=== PATIENT | female | born 1950 | race Caucasian/White ===

== ENCOUNTER 2023-09-07 09:39 | Outpatient (AMB) | payer MEDICARE, SELFPAY ==
--- NOTE | 2023-09-07 09:37 | AM.OFFWIN_ITS ---
Intake Vital Signs 09/07/23 09:46 Height 5 ft 2 in Weight 112 lb BMI 20.5 BP 120/60 Blood Pressure Location Lt brachial Position Sitting Pulse 82 Pulse Source Pulse Oximeter Temp 97.6 F Temp Source Temporal Artery Scan Pulse Oximetry (%) 96 Oxygen Delivery Method Room Air Intake Visit Reasons: EP cough lft ear pain Intake Note: pt is here today for cough lft ear pain started 2 weeks ago Patient Tobacco Use Status: Current everyday Tobacco user Allergies Sulfa (Sulfonamide Antibiotics) [SULFA (SULFONAMIDE ANTIBIOTICS)] Allergy (Mild, Verified 09/07/23 09:38) HIVES Penicillins [PENICILLINS] Allergy (Unknown, Verified 09/07/23 09:38) UNKNOWN Do you need a note to return to daycare/school/sports/work: No HPI HPI Comments History of Present Illness Details 73 y/o female patient who presents to [facility] in clinic with c/o URI symptoms for 2 weeks. Pt has been in/out of hospital, is admitted. PFSH Social History Patient Tobacco Use Status: Current everyday Tobacco user Review of Systems Const All systems reviewed & are unremarkable except as noted in HPI and below Physical Exam Vital Signs: Last Vital Signs Temp 97.6 F 09/07/23 09:46 Pulse 82 09/07/23 09:46 BP 120/60 09/07/23 09:46 Pulse Ox 96 09/07/23 09:46 Oxygen Delivery Method Room Air 09/07/23 09:46 BMI result Body Mass Index 20.5 Const General: no acute distress and ill appearing HEENT Head: Yes normocephalic and Yes atraumatic Ears: external ears normal and TM's normal bilaterally General nose exam: Abnormal mucous membranes and turbinates present boggy bilateral and erythematous bilateral Face and sinus: Yes sinuses nontender Mouth: moist mucous membranes Throat: Yes posterior oropharynx normal Resp Effort & Inspection: able to speak in complete sentences and Actively coughing Auscultation: rhonchi and wheezes Cardio Rate: regular rate Rhythm: regular rhythm Assessment & Plan Assessment & Plan (1) Upper respiratory infection: Code(s): J06.9 - Acute upper respiratory infection, unspecified Qualifiers: URI type: unspecified URI Qualified Code(s): J06.9 - Acute upper respiratory infection, unspecified Plan: - Rest and hydrate well - Acetaminophen for pain relief - OTC cold remedies. Orders: Orders SARS-CoV2/FLU/RSV Today J06.9 - Acute upper respiratory infection, unspecified Medications: New doxycycline hyclate 100 mg PO BID 10 days 20 caps 0RF acetaminophen 1,000 mg (2 x 500 mg) PO Q6H PRN 30 caps 0RF fever J06.9 - Acute upper respiratory infection, unspecified Coding Level of Care Code Est Pt Level 3 (61838) Diagnoses Upper respiratory tract infection, unspecified type J06.9 URI type: unspecified URI Time Spent (min) 15
[2023-09-07 09:46] VITALS: BP 120/60; PULSE 82; TEMP 36.4; O2SAT 96; BMI 20.5
== END 2023-09-07 10:18 | disposition home or self-care (01) ==
PROVIDERS: PCP Internal Medicine; Visit Provider Nurse Practitioner Family
DX: J06.9 Acute upper respiratory infection, unspecified (principal)
CPT/HCPCS: 99213

== ENCOUNTER 2023-09-07 10:11 | Outpatient (REF) | payer MEDICARE, SELFPAY ==
[2023-09-07 14:54] LABS: Influenza A PCR NEGATIVE (Negative); Influenza B PCR NEGATIVE (Negative); Resp Syncy Virus RNA Qual PCR NEGATIVE (Negative); SARS COV2 PCR INHOUSE POSITIVE (Negative)
== END 2023-09-07 10:12 | disposition home or self-care (01) ==
LOC: HO.LAB 10:11
PROVIDERS: Visit Provider Nurse Practitioner Family
DX: Z11.52 Encounter for screening for COVID-19 (principal); Z20.822 Contact with and (suspected) exposure to COVID-19; J06.9 Acute upper respiratory infection, unspecified
CPT/HCPCS: 0241U

== ENCOUNTER 2023-10-05 13:05 | Outpatient (AMB) | payer MEDICARE, SELFPAY ==
[2023-10-05 13:28] VITALS: BP 110/70; PULSE 68; TEMP 36.6; O2SAT 97; BMI 20.3
--- NOTE | 2023-10-05 13:28 | AM.OFFWIN_ITS ---
Intake Vital Signs 10/05/23 13:28 Height 5 ft 2 in Weight 111 lb BMI 20.3 BP 110/70 Blood Pressure Location Lt brachial Position Sitting Pulse 68 Pulse Source Pulse Oximeter Temp 97.8 F Temp Source Temporal Artery Scan Pulse Oximetry (%) 97 Oxygen Delivery Method Room Air Intake Visit Reasons: EP ?Flu like symptoms Intake Note: pt is here today for flunlike symptoms started 1 moth ago Patient Tobacco Use Status: Current everyday Tobacco user Allergies Sulfa (Sulfonamide Antibiotics) [SULFA (SULFONAMIDE ANTIBIOTICS)] Allergy (Mild, Verified 10/05/23 13:31) HIVES Penicillins [PENICILLINS] Allergy (Unknown, Verified 10/05/23 13:31) UNKNOWN Do you need a note to return to daycare/school/sports/work: No HPI HPI Comments History of Present Illness Details 73 y/o female patient who presents to [facility] with c/o cough since Aug. Pt was seen by me 09/12 for similar symptoms. She was diagnosed with COVID 19 infection then. Pt reports not feeling well since the diagnosis. Pt was given Doxy last visit but did not take the medication due to GI upset. PFSH Social History Patient Tobacco Use Status: Current everyday Tobacco user Physical Exam Vital Signs: Last Vital Signs Temp 97.8 F 10/05/23 13:28 Pulse 68 10/05/23 13:28 BP 110/70 10/05/23 13:28 Pulse Ox 97 10/05/23 13:28 Oxygen Delivery Method Room Air 10/05/23 13:28 BMI result Body Mass Index 20.3 Const General: comfortable and no acute distress Nutritional Appearance: malnourished Orientation/consciousness: patient oriented x3 HEENT Head: Yes normocephalic Ears: external ears normal and TM abnormal erythematous on the left and with fluid behind the TM bilateral General nose exam: Abnormal mucous membranes and turbinates present boggy and erythematous Face and sinus: Yes sinuses nontender Mouth: moist mucous membranes Throat: Yes posterior oropharynx normal Resp Effort & Inspection: normal respiratory effort and able to speak in complete sentences Auscultation: clear to auscultation bilaterally, no crackles, no rales, no rhonchi and no wheezes Cardio Rate: regular rate Rhythm: regular rhythm Neuro General: patient oriented x3 Assessment & Plan Assessment & Plan (1) Upper respiratory infection: Code(s): J06.9 - Acute upper respiratory infection, unspecified Qualifiers: URI type: unspecified URI Qualified Code(s): J06.9 - Acute upper respiratory infection, unspecified Plan: - Chest Xray to r/o other etiologies. - Prob still COVID (2) Cough in adult: Code(s): R05.9 - Cough, unspecified Plan: - OTC cough remedies. - Rest and hydrate well with warm fluids. Orders: Orders XR chest 2V Today J06.9 - Acute upper respiratory infection, unspecified, R05.9 - Cough, unspecified SARS-CoV2/FLU/RSV Today J06.9 - Acute upper respiratory infection, unspecified, R05.9 - Cough, unspecified, R09.89 - Other specified symptoms and signs involving the circulatory and respiratory systems Coding Level of Care Code Est Pt Level 3 (02419) Diagnoses Upper respiratory tract infection, unspecified type J06.9 URI type: unspecified URI Cough in adult R05.9 Time Spent (min) 15
== END 2023-10-05 14:30 | disposition home or self-care (01) ==
PROVIDERS: PCP Internal Medicine; Visit Provider Nurse Practitioner Family
DX: J06.9 Acute upper respiratory infection, unspecified (principal); R05.9 Cough, unspecified
CPT/HCPCS: 99213

== ENCOUNTER 2023-10-05 13:50 | Outpatient (REF) | payer MEDICARE, SELFPAY ==
--- NOTE | ~2023-10-05 | XR_ITS ---
EXAMINATION: XR CHEST CLINICAL INFORMATION: Cough. COMPARISON: None available. TECHNIQUE: 2 views of the chest were obtained. FINDINGS: No significant abnormality is noted involving the heart, lungs, mediastinum, bony thorax or soft tissues. XR/XR chest 2V IMPRESSION: Unremarkable chest examination.
== END 2023-10-05 13:51 | disposition home or self-care (01) ==
LOC: HO.HMGCX 13:50
PROVIDERS: PCP Internal Medicine; Visit Provider Nurse Practitioner Family
DX: R05.9 Cough, unspecified (principal); J06.9 Acute upper respiratory infection, unspecified
CPT/HCPCS: 71046

== ENCOUNTER 2023-10-05 14:07 | Outpatient (REF) | payer MEDICARE, SELFPAY ==
[2023-10-05 19:41] LABS: Influenza A PCR NEGATIVE (Negative); Influenza B PCR NEGATIVE (Negative); Resp Syncy Virus RNA Qual PCR NEGATIVE (Negative); SARS COV2 PCR INHOUSE NEGATIVE (Negative)
== END 2023-10-05 14:08 | disposition home or self-care (01) ==
LOC: HO.LAB 14:07
PROVIDERS: Visit Provider Nurse Practitioner Family
DX: Z11.52 Encounter for screening for COVID-19 (principal); R09.89 Other specified symptoms and signs involving the circulatory and respiratory systems; R05.9 Cough, unspecified; J06.9 Acute upper respiratory infection, unspecified
CPT/HCPCS: 0241U

== ENCOUNTER 2023-10-30 13:05 | Outpatient (AMB) | payer MEDICARE, SELFPAY ==
[2023-10-30 13:06] VITALS: BP 124/68; PULSE 89; TEMP 36.2; O2SAT 93; BMI 19.8
--- NOTE | 2023-10-30 13:06 | AM.OFFWIN_ITS ---
Intake Vital Signs 10/30/23 13:06 Height 5 ft 2 in Weight 108 lb BMI 19.8 BP 124/68 Blood Pressure Location Lt brachial Position Sitting Pulse 89 Pulse Source Pulse Oximeter Temp 97.1 F Temp Source Temporal Artery Scan Pulse Oximetry (%) 93 Oxygen Delivery Method Room Air Intake Visit Reasons: EP cough trouble breathing (lobby) Intake Note: pt is here today for cough trouble breathing started september 28 Patient Tobacco Use Status: Current everyday Tobacco user Allergies Sulfa (Sulfonamide Antibiotics) [SULFA (SULFONAMIDE ANTIBIOTICS)] Allergy (Mild, Verified 10/30/23 13:36) HIVES Penicillins [PENICILLINS] Allergy (Unknown, Verified 10/30/23 13:36) UNKNOWN Medication List - Last Reconciled 10/30/23 by LETICIA Horner No Known Home Meds Do you need a note to return to daycare/school/sports/work: No HPI HPI Comments History of Present Illness Details Patient is a 73-year-old female in today for a sick visit. Patient is in with symptoms of cough, and dyspnea on exertion, x1 month. Patient has history of walk-in clinic was originally diagnosed with COVID 2 months prior, came in with 1 subsequent visit for upper respiratory infection symptoms. Patient is current everyday cigarette smoker. Patient presents today with worsening cough, dyspnea on exertion, excessive mucus clearance, inability to sleep at night due to cough. Patient states she has a difficult time getting into her primary care physician. Has tried [id number] medicine with mild effect. Was given doxycycline and previous appointment which she stop taking early due to upset stomach. Patient states the only antibiotic she can take is azithromycin. Patient denies chest pain, shortness a breath, fever, dizziness, nausea, vomiting, diarrhea. Patient has bilateral wheeze upper lobes and rhonchi on physical exam. Will give nebulizer treatment. Will give patient prednisone, albuterol, azithromycin. Will also obtain chest x-ray and draw CMP and CBC PFSH Social History Patient Tobacco Use Status: Current everyday Tobacco user Review of Systems Const All systems reviewed & are unremarkable except as noted in HPI and below ENT Denies dizziness and Denies sore throat Card Denies chest pain, Denies leg edema, Denies lightheadedness, Denies dyspnea and Reports dyspnea on exertion Resp Reports chest congestion, Reports cough, Denies dyspnea, Reports dyspnea on exer tion and Reports wheezing GI Denies diarrhea, Denies nausea and Denies vomiting Neuro Denies dizziness Aller/Immun Reports wheezing Physical Exam Vital Signs: Last Vital Signs Temp 97.1 F 10/30/23 13:06 Pulse 89 10/30/23 13:06 BP 124/68 10/30/23 13:06 Pulse Ox 93 10/30/23 13:06 Oxygen Delivery Method Room Air 10/30/23 13:06 BMI result Body Mass Index 19.8 Office Procedures Nebulizer Treatment Nebulizer Treatment [id number]/MDI RX initial, or Nebulizer Subsequent Treatment Office Meds ipratropium 0.5 mg-albuterol 3 mg (2.5 mg base)/3 mL nebulization soln Performing Provider: LETICIA Horner Performing Location: [facility] [place] Administered by: LETICIA Horner on 10/30/23 13:41 Dose Route Admin Location Dispensed Lot Number Expiration Date NDC Equipment Man 3 mL inhalation 3 mL [id number] 04/15/24 [id number] [place] Assessment & Plan Assessment & Plan (1) Upper respiratory infection: Comment: Will obtain URI swab. Will obtain chest x-ray, CMP, CBC. Patient will be given prednisone, azithromycin to be taken as directed Code(s): J06.9 - Acute upper respiratory infection, unspecified Qualifiers: URI type: unspecified URI Qualified Code(s): J06.9 - Acute upper respiratory infection, unspecified Plan: Take your medications as prescribed. If you were prescribed antibiotics today, it is important that you take your medication to their entirety, do not skip any doses, do not finish them early. Follow-up with your primary care provider this week. Return to the emergency department with new or worsening symptoms. Such as fevers, chills, chest pain, shortness of breath, nausea, vomiting, dizziness, headache, vision changes, lethargy In case of emergency call 911 (2) Reactive airway disease: Comment: Will prescribe patient albuterol sulfate. Patient been advised to follow-up with PCP, will likely need PFTs Code(s): J45.909 - Unspecified asthma, uncomplicated Qualifiers: Asthma severity: unspecified severity Asthma persistence: unspecified Asthma complication type: uncomplicated Qualified Code(s): J45.909 - Unspecified asthma, uncomplicated Plan: Follow-up PCP Orders: Orders SARS-CoV2/FLU/RSV Today J06.9 - Acute upper respiratory infection, unspecified Complete Blood Count Auto Diff Today D72.829 - Elevated white blood cell count, unspecified XR chest 2V Today J18.9 - Pneumonia, unspecified organism AMB Nebulizer Treatment Today J06.9 - Acute upper respiratory infection, unspecified Comprehensive Met. Panel Today Z91.89 - Other specified personal risk factors, not elsewhere classified Medications: New albuterol sulfate 90 mcg/actuation 2 puffs inhalation Q6H PRN 6.7 grams 0RF shortness of breath or wheezing prednisone 20 mg PO DAILY 5 tabs 0RF azithromycin For 250 mg dose pack: take 500 mg today (day 1), then 250 mg for 4 days (days 2-5) PO 6 tabs 0RF Coding Level of Care Code Est Pt Level 4 (69623) Diagnoses Upper respiratory tract infection, unspecified type J06.9 URI type: unspecified URI Reactive airway disease without complication, unspecified asthma severity, unspecified whether persistent J45.909 Asthma severity: unspecified severity Asthma persistence: unspecified Asthma complication type: uncomplicated CPT Codes Nebulizer Treatment - Nebulizer Treatment, initial or subsequent: 83964- Nebulizer/MDI RX initial, or Nebulizer Subsequent Treatment ([id number]) Time Spent (min) 35
== END 2023-10-30 14:49 | disposition home or self-care (01) ==
PROVIDERS: PCP Internal Medicine; Visit Provider Nurse Practitioner Primary Care
DX: J06.9 Acute upper respiratory infection, unspecified (principal); J45.909 Unspecified asthma, uncomplicated
CPT/HCPCS: 94640; 99214; J7620

== ENCOUNTER 2023-10-30 13:45 | Outpatient (REF) | payer MEDICARE, SELFPAY ==
--- NOTE | ~2023-10-30 | XR_ITS ---
EXAMINATION: XR CHEST CLINICAL INFORMATION: Pneumonia. COMPARISON: 10/05/2023 TECHNIQUE: 2 views of the chest were obtained. FINDINGS: There is a patchy retrocardiac infiltrate at the left base. This appears slightly worse than on the prior exam. The right lung is grossly clear. Heart and pulmonary vessels normal. No congestive change. No pleural effusion. Surgical clips overlie the left axilla. XR/XR chest 2V IMPRESSION: Progressive left basilar retrocardiac infiltrate.
[2023-10-30 16:13] LABS: MANUAL DIFF FLAG NO
[2023-10-30 16:20] LABS: Basophils Absolute Auto 0.1 X10*3/uL (0.0-0.2); Basophils Percent Auto 1.2 % (0-2); Eosinophils Absolute Auto 0.2 X10*3/uL (0.0-0.4); Eosinophils Percent Auto 3.3 % (0-4); Hematocrit 46.2 % (37.0-47.0); Hemoglobin 15.3 g/dl (12.0-16.0); Imm Gran Abs Auto 0.01 X10*3/uL (0.00-0.03); Imm Gran Pct Auto 0.1 % (0.0-0.4); Lymphocytes Absolute Auto 1.5 X10*3/uL (1.2-4.9); Lymphocytes Percent Auto 21.7 % (20-40); Mean Corpuscular HGB Conc 33.1 g/dl (31.0-35.0); Mean Corpuscular Hemoglobin 30.5 pg (27.0-33.0); Mean Platelet Volume 10.2 fL (9.4-12.3); Monocytes Absolute Auto 0.5 X10*3/uL (0.1-1.2); Monocytes Percent Auto 6.8 % (2-11); Neutrophils Absolute Auto 4.6 x10*3/uL (2.0-8.3); Neutrophils Percent Auto 66.9 % (45-73); Platelet Count 341 X10*3/uL (160-400); Red Blood Count 5.02 X10*6/uL (4.20-5.50); Red Cell Distribution Width 13.4 % (11.0-16.0); White Blood Count 6.9 X10*3/uL (4.8-10.8)
[2023-10-30 16:58] LABS: Alanine Aminotransferase 7 U/L (0-31); Albumin Level 4.2 g/dL (3.5-5.0); Alkaline Phosphatase 82 U/L (39-117); Anion Gap 13 (12-20); Aspartate Amino Transferase 11 U/L (5-31); Bilirubin Total 0.8 mg/dL (0.0-1.0); Blood Urea Nitrogen 9 mg/dL (9-16); Calcium 9.7 mg/dL (8.4-10.2); Carbon Dioxide 28 mmol/L (22-29); Chloride 101 mmol/L (96-108); Estimated Glomerular Filt Rate > 60; Glucose Random 104 mg/dL (60-115); Potassium 3.4 mmol/L (3.3-5.1); Sodium 139 mmol/L (135-145); Total Protein 7.9 g/dL (6.5-8.0)
[2023-10-30 17:05] LABS: Influenza A PCR NEGATIVE (Negative); Influenza B PCR NEGATIVE (Negative); Resp Syncy Virus RNA Qual PCR NEGATIVE (Negative); SARS COV2 PCR INHOUSE NEGATIVE (Negative)
== END 2023-10-30 13:46 | disposition home or self-care (01) ==
LOC: HO.HMGCX 13:45
PROVIDERS: PCP Internal Medicine; Visit Provider Nurse Practitioner Primary Care
DX: Z11.52 Encounter for screening for COVID-19 (principal); J18.9 Pneumonia, unspecified organism; D72.829 Elevated white blood cell count, unspecified; J06.9 Acute upper respiratory infection, unspecified; Z91.89 Other specified personal risk factors, not elsewhere classified
CPT/HCPCS: 0241U; 36415; 71046; 80053; 85025

== ENCOUNTER 2024-01-31 09:58 | Outpatient (AMB) | payer MEDICARE, SELFPAY ==
--- NOTE | 2024-01-31 10:00 | AM.OFFWIN_ITS ---
Intake Vital Signs 01/31/24 10:01 Height 5 ft 2 in Weight 108 lb BMI 19.8 BP 110/72 Blood Pressure Location Rt brachial Position Sitting Pulse 86 Pulse Source Pulse Oximeter Temp 98.3 F Temp Source Oral Pulse Oximetry (%) 91 L Oxygen Delivery Method Room Air Intake Visit Reasons: EP, difficulty breathing Intake Note: pt is here c/o shortness of breath. Ongoing since had Covid end of August Patient Tobacco Use Status: Current everyday Tobacco user Allergies Sulfa (Sulfonamide Antibiotics) [SULFA (SULFONAMIDE ANTIBIOTICS)] Allergy (Mild, Verified 01/31/24 10:00) HIVES Penicillins [PENICILLINS] Allergy (Unknown, Verified 01/31/24 10:00) UNKNOWN Do you need a note to return to daycare/school/sports/work: No HPI EP, difficulty breathing HPI Details This note is constructed using voice recognition software. While every effort has been made to ensure accuracy, slaughterer religious ritual errors may have been included. The patient is a 73 year old female who presents to the clinic today with 5 month history of dyspnea after having had covid. She has a 50 year, 1 ppd [facility] history, and is not up to date on lung cancer screening, as her last was a few years ago. She reports she monitors her o2 sat at home, and they typically run 92-93%. Last night, she had some increased dyspnea which made her feel slightly panicked, but she did not want to go the ER. She reports copious thick clear to grant secretions. No fever, chills. She reports difficulty with dyspnea with mild activity, though none at rest. She has attempted to contact her PCP in the past, however they will not see her when she comes in for cough and shortness of breath that is acute. She has not called for an appointment with her PCP due to the chronic symptoms that she has been having. [facility] Social History Patient Tobacco Use Status: Current everyday Tobacco user Review of Systems Const All systems reviewed & are unremarkable except as noted in HPI and below Physical Exam Vital Signs: Last Vital Signs Temp 98.3 F 01/31/24 10:01 Pulse 86 01/31/24 10:01 BP 110/72 01/31/24 10:01 Pulse Ox 91 L 01/31/24 10:01 Oxygen Delivery Method Room Air 01/31/24 10:01 BMI result Body Mass Index 19.8 Const General: cooperative, healthy appearing, comfortable, no acute distress and alert Orientation/consciousness: patient oriented x3 Limitations: no limitations HEENT Head: Yes normal to inspection and Yes normocephalic Ears: hearing grossly normal bilaterally General nose exam: Normal external nose present Face and sinus: Yes normal facial exam and Yes sinuses nontender Mouth: Normal oral and palatal mucosa present and tongue normal Teeth and gingiva: dentition normal Throat: Yes posterior oropharynx normal Eyes General: appearance normal, both eyes and all related structures Neck Neck: Yes normal visual inspection, Yes full ROM and Yes no lymphadenopathy Resp Effort & Inspection: normal respiratory effort and able to speak in complete sentences Auscultation: rhonchi (Clears with cough) throughout and wheezes scattered wheezes Cardio Jugular venous distension: no JVD Palpation: normal PMI Rate: regular rate Heart sounds: S1 normal heart sound present, S2 normal heart sound present, no click, no gallops, no murmurs and no rubs Skin General skin exam: no rashes or lesions noted, elasticity normal and turgor normal Neuro General: patient oriented x3 Psych Appearance: grossly normal Mental Status: mental status grossly normal Speech and movement: Normal speech and movement present Affect: normal affect Assessment & Plan Assessment & Plan (1) COPD exacerbation: Code(s): J44.1 - Chronic obstructive pulmonary disease with (acute) exacerbation Plan: Patient does not have formal diagnosis of COPD, however history and physical examination combined with long-term smoking history likely consistent with COPD exacerbation. We will treat accordingly with antimicrobials and steroids. Advised patient to contact PCP for long-term follow of this, formal diagnosis, and consideration of referral to smoke chaser. Also advised patient that she would benefit from annual screening for lung cancer given her chronic smoking history. Advised smoking cessation, she reports that she is going to attempt this with her PCP and request a nicotine patch prescription. Advised ER with persistent O2 sats below 90%, advised patient to monitor this several times per day. Also advised ER with dyspnea at rest, or worsening symptoms including fever. Plan See above for full details and plan. Medications: New azithromycin For 250 mg dose pack: take 500 mg today (day 1), then 250 mg for 4 days (days 2-5) PO 6 tabs 0RF prednisone see taper instructions: 5 pills daily for 2 days, then 4 pills daily for 2 days, then 3 pills daily for 2 days, then 2 pills daily for 2 days, then 1 pill daily for 2 days. 10 mg PO DIRECTED 30 tabs 0RF Coding Level of Care Code Est Pt Level 4 (17199) Diagnoses COPD exacerbation J44.1
[2024-01-31 10:01] VITALS: BP 110/72; PULSE 86; TEMP 36.8; O2SAT 91; BMI 19.8
== END 2024-01-31 10:50 | disposition home or self-care (01) ==
PROVIDERS: PCP Internal Medicine; Visit Provider Registered Nurse
DX: J44.1 Chronic obstructive pulmonary disease with (acute) exacerbation (principal)
CPT/HCPCS: 99214

== ENCOUNTER 2024-02-06 18:56 | Emergency (ER) | payer MEDICARE, OTHER, SELFPAY ==
--- NOTE | ~2024-02-06 | XR_ITS ---
EXAMINATION: XR CHEST CLINICAL INFORMATION: Choking episode COMPARISON: 10/30/2023 TECHNIQUE: Frontal view of the chest was obtained. FINDINGS: The heart and pulmonary vessels appear normal. Surgical clips present in the left axilla. There is infiltrate/atelectasis at the left lung base, slightly improved when compared to the prior study. Small left pleural effusion may be present. The right lung is clear without effusion. XR/XR chest 1V IMPRESSION: Left lower lobe infiltrate/atelectasis with small left pleural effusion.
[2024-02-06 19:01] VITALS: BP 110/72; PULSE 95; O2SAT 96; BMI 21.5
[2024-02-06 19:05] VITALS: BP 134/66; PULSE 84; RESP 18; TEMP 36.8; O2SAT 93
--- NOTE | 2024-02-06 19:10 | PC.NURSE ---
biba from home s/p choking on a fiberglass grinder [employer]ADLE [employer] - performed heimlich remover w/ success - object cleared. pt presents c/o throat irritation/worried that remains may still be present. pt able to speak in full clear sentences w/o difficulty. no sob/wob noted. respirations even/unlabored. lung sounds CTA. plan of care ongoing. call garcía placed within reach.
--- NOTE | 2024-02-06 19:40 | PC.NURSE ---
xray being completed at this time.
--- NOTE | 2024-02-06 19:40 | ED.GENADULT ---
HPI - General Adult General Chief complaint: General Medical Stated complaint: choking,object cleared, thoat feels irritated Time Seen by Provider: 02/06/24 19:14 Source: patient Mode of arrival: EMS Limitations: no limitations History of Present Illness ED Provider: CYNDY FLROES narrative: 73 yo female with PMH of reactive airway disease, sinusitis here with c/o s/p choking episode performed heimlech maneuver and now she feels okay she states her throat is a little sore but otherwise she feels good. tolerating water. denies dyspnea. 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 Has choked one other time on fish in the past. MD complaint: choking episode Onset (ago): hour(s) (1) Location: mouth Radiation: non-radiation Severity: severe Relieving factors: other ( performed heimlech) Exacerbating factors: none Associated symptoms: other (throat feels mildly irritated) Treatments prior to arrival: none Related Data Previous Rx's ?Medication ?Instructions ?Recorded albuterol sulfate 90 mcg/actuation 2 puff inhalation Q6H PRN 10/30/23 aerosol inhaler shortness of breath or wheezing #6.7 grams azithromycin 250 mg tablet See Rx Instructions PO .COMPLEX #6 01/31/24 tabs prednisone 10 mg tablet 10 mg PO DIRECTED #30 tabs 01/31/24 Allergies Allergy/AdvReac Type Severity Reaction Status Date / Time Sulfa (Sulfonamide Allergy Mild HIVES Verified 02/06/24 19:03 Antibiotics) [SULFA (SULFONAMIDE ANTIBIOTICS)] Penicillins [PENICILLINS] Allergy Unknown UNKNOWN Verified 02/06/24 19:03 Review of Systems Review of Systems: Constitutional : No Fever, No Chills ENT/Mouth : No Hoarseness, pos sore throat, No Rhinorrhea Eyes: No Redness, No Discharge, No Vision Changes Cardiovascular : No Chest Pain, no SOB, no Dyspnea on Exertion, No Edema Respiratory : positive Cough, No Sputum, no Wheezing, Gastrointestinal : No Nausea, No Vomiting, No Diarrhea, No abdominal Pain Genitourinary : No Dysuria, No Hematuria Musculoskeletal : No joint pain, No Myalgias Skin : No rash Neuro : No Weakness, No Numbness, No Headache Psych : No anxiety, depression All other systems reviewed and are negative [facility] Past Medical History Attestation statement: The following information was validated with the patient. Source: old records reviewed Medical History Upper respiratory infection Sinusitis, acute Reactive airway disease Social History Social History Patient Tobacco Use Status: Current everyday Tobacco user Smoked in Last 30 Days: Yes Use of substances other than those prescribed or required for medical reasons: No Advance Directives: No Advance Directives Information Provided: No Do you have a plan to hurt others: No Plan Physical Exam ED Vital Signs: Vital Signs - 24 hr 02/06/24 19:05 02/06/24 20:06 Temperature 98.2 F 97.9 F Pulse Rate 84 73 Respiratory Rate 18 16 Blood Pressure 134/66 146/71 H Pulse Oximetry 93 95 Oxygen Delivery Method Room Air Room Air BMI result Body Mass Index 21.5 Appearance: Alert. Oriented X3. No acute distress. Eyes: Pupils equal, round and reactive to light. ENT: Pharynx normal. Neck: Normal inspection. Neck supple. no crepitus, able to swallow water in front of me without issue CVS: Normal heart rate and rhythm. Pulses normal. Respiratory: No respiratory distress. Breath sounds normal. Chest: no rib ttp Abdomen: Soft and nontender. Skin: Skin warm and dry. Normal skin color. Normal skin turgor. Extremities: No lower extremity edema. No calf ttp Neuro: Oriented X 3. No motor deficit. No sensory deficit. Medical Decision Making Medical Decision Making MDM Narrative: 73 yo female with PMH of reactive airway disease presents with c/o resolved choking episode at home she has no CP/SOB. She is able to swallow though reports some scratching in throat voice is normal no crepitus in throat or pain. CXR ordered 95% on RA. Anticipate DC home with Differential Diagnosis Differential Diagnoses: The differential diagnosis associated with the presentation includes choking event Admission/Observation Consideration of admission/observation: Escalation of care including admission/observation considered not toxic, no symptoms 95% on RA Independent Interpretation I performed an independent interpretation of an: Plain X-Ray (normal ) Radiology Impression Discussion of test interpretation with radiology: I have reviewed the radiologist's reading. Independent Historian Clinical information obtained from an independent historian. History obtained from or confirmed by: Spouse and EMS External Record Review External record reviewed: Inpatient record Discharge Plan Discharge Clinical Impression: Choking episode Patient Disposition: Home, Self-Care Instructions: Performing the Heimlich Maneuver (ED) Additional Instructions: monitor breathing, return for difficulty breathing, blood in sputum, fevers, sever pain or any other concerns. Prescriptions: No Action azithromycin 250 mg tablet See Rx Instructions PO .COMPLEX Qty: 6 0RF Rx Instructions: For 250 mg dose pack: take 500 mg today (day 1), then 250 mg for 4 days (days 2-5) PO prednisone 10 mg tablet 10 mg PO DIRECTED Qty: 30 0RF Rx Instructions: see taper instructions: 5 pills daily for 2 days, then 4 pills daily for 2 days, then 3 pills daily for 2 days, then 2 pills daily for 2 days, then 1 pill daily for 2 days. albuterol sulfate 90 mcg/actuation HFA aerosol inhaler 2 puff inhalation Q6H PRN (Reason: shortness of breath or wheezing) Qty: 6.7 0RF Print Language: Persian
[2024-02-06 20:06] VITALS: BP 146/71; PULSE 73; RESP 16; TEMP 36.6; O2SAT 95
--- NOTE | 2024-02-06 21:11 | ED.GENADULT ---
HPI - General Adult General Chief complaint: General Medical Stated complaint: choking,object cleared, thoat feels irritated Time Seen by Provider: 02/06/24 19:14 Source: patient Mode of arrival: EMS Limitations: no limitations History of Present Illness Location: mouth Relieving factors: other ( performed heimlech) Exacerbating factors: none Associated symptoms: other (throat feels mildly irritated) Treatments prior to arrival: none Related Data Previous Rx's ?Medication ?Instructions ?Recorded albuterol sulfate 90 mcg/actuation 2 puff inhalation Q6H PRN 10/30/23 aerosol inhaler shortness of breath or wheezing #6.7 grams azithromycin 250 mg tablet See Rx Instructions PO .COMPLEX #6 01/31/24 tabs prednisone 10 mg tablet 10 mg PO DIRECTED #30 tabs 01/31/24 cefuroxime axetil 500 mg tablet 500 mg PO BID 7 days #14 tabs 02/06/24 metronidazole 500 mg tablet 500 mg PO BID 7 days #14 tabs 02/06/24 Allergies Allergy/AdvReac Type Severity Reaction Status Date / Time Sulfa (Sulfonamide Allergy Mild HIVES Verified 02/06/24 19:03 Antibiotics) [SULFA (SULFONAMIDE ANTIBIOTICS)] Penicillins [PENICILLINS] Allergy Unknown UNKNOWN Verified 02/06/24 19:03 [facility] Past Medical History Medical History Upper respiratory infection Sinusitis, acute Reactive airway disease Social History Social History Patient Tobacco Use Status: Current everyday Tobacco user Smoked in Last 30 Days: Yes Use of substances other than those prescribed or required for medical reasons: No Advance Directives: No Advance Directives Information Provided: No Do you have a plan to hurt others: No Plan Physical Exam ED Vital Signs: Vital Signs - 24 hr 02/06/24 19:05 02/06/24 20:06 Temperature 98.2 F 97.9 F Pulse Rate 84 73 Respiratory Rate 18 16 Blood Pressure 134/66 146/71 H Pulse Oximetry 93 95 Oxygen Delivery Method Room Air Room Air BMI result Body Mass Index 21.5 Discharge Plan Discharge Clinical Impression: Choking episode, Aspiration pneumonia Patient Disposition: Home, Self-Care Instructions: Performing the Heimlich Maneuver (ED), Aspiration Precautions (ED) Additional Instructions: monitor breathing, return for difficulty breathing, blood in sputum, fevers, sever pain or any other concerns. ' finish antibiotics TECHNIQUE: Frontal view of the chest was obtained. FINDINGS: The heart and pulmonary vessels appear normal. Surgical clips present in the left axilla. There is infiltrate/atelectasis at the left lung base, slightly improved when compared to the prior study. Small left pleural effusion may be present. The right lung is clear without effusion. XR/XR chest 1V IMPRESSION: Left lower lobe infiltrate/atelectasis with small left pleural effusion. Prescriptions: New cefuroxime axetil 500 mg tablet 500 mg PO BID 7 Days Qty: 14 0RF metronidazole 500 mg tablet 500 mg PO BID 7 Days Qty: 14 0RF No Action azithromycin 250 mg tablet See Rx Instructions PO .COMPLEX Qty: 6 0RF Rx Instructions: For 250 mg dose pack: take 500 mg today (day 1), then 250 mg for 4 days (days 2-5) PO prednisone 10 mg tablet 10 mg PO DIRECTED Qty: 30 0RF Rx Instructions: see taper instructions: 5 pills daily for 2 days, then 4 pills daily for 2 days, then 3 pills daily for 2 days, then 2 pills daily for 2 days, then 1 pill daily for 2 days. albuterol sulfate 90 mcg/actuation HFA aerosol inhaler 2 puff inhalation Q6H PRN (Reason: shortness of breath or wheezing) Qty: 6.7 0RF Print Language: Kazakh
[2024-02-06] MEDS: cefuroxime axetiL 500 MG TABLET PO (21:17)
[2024-02-06] MEDS: metroNIDAZOLE 500 MG TABLET PO (21:17)
[2024-02-06 21:30] VITALS: BP 146/71; PULSE 73; RESP 16; TEMP 36.6; O2SAT 95
--- NOTE | 2024-02-06 21:30 | PC.NURSE ---
medication administered per provider order.
== END 2024-02-06 21:31 | disposition home or self-care (01) ==
PROVIDERS: Emergency Provider Emergency Medicine; PCP Internal Medicine
DX: T18.9XXA Foreign body of alimentary tract, part unspecified, initial encounter (principal); W44.F3XA Food entering into or through a natural orifice, initial encounter; Y93.89 Activity, other specified; Y92.009 Unspecified place in unspecified non-institutional (private) residence as the place of occurrence of the external cause; Y99.9 Unspecified external cause status
CPT/HCPCS: 71045; 99283; 99284

== ENCOUNTER 2024-02-19 13:57 | Outpatient (AMB) | payer MEDICARE, OTHER, SELFPAY ==
--- NOTE | 2024-02-19 13:57 | AM.OFFWIN_ITS ---
Intake Vital Signs 02/19/24 14:01 Height 5 ft 3 in Weight 110 lb BMI 19.5 BP 114/70 Blood Pressure Location Rt brachial Position Sitting Pulse 77 Pulse Source Pulse Oximeter Temp 97.8 F Temp Source Oral Pulse Oximetry (%) 95 Oxygen Delivery Method Room Air Intake Visit Reasons: EP Throat and Ear pain Intake Note: pt c/o throat and ear pain. Started 2 days ago Patient Tobacco Use Status: Current everyday Tobacco user Allergies Sulfa (Sulfonamide Antibiotics) [SULFA (SULFONAMIDE ANTIBIOTICS)] Allergy (Mild, Verified 02/19/24 13:58) HIVES Penicillins [PENICILLINS] Allergy (Unknown, Verified 02/19/24 13:58) UNKNOWN Do you need a note to return to daycare/school/sports/work: No HPI HPI Comments History of Present Illness Details 73 y/o female patient who presents to [facility] with c/o SOB, chest tightness, sore-throat and left ear pain for few days now. Pt was seen and evaluated at [facility] for similary symptoms back in 02/06. She was diagnosed with Pneumonia and given Abx. Today Pt reports not taking the medication because she felt sick in her stomach. Pt is a chronic cigarette smoker. [facility] Medical History Upper respiratory infection Sinusitis, acute Reactive airway disease Social History Patient Tobacco Use Status: Current everyday Tobacco user Review of Systems Const All systems reviewed & are unremarkable except as noted in HPI and below Physical Exam Vital Signs: Last Vital Signs Temp 97.8 F 02/19/24 14:01 Pulse 77 02/19/24 14:01 BP 114/70 02/19/24 14:01 Pulse Ox 95 02/19/24 14:01 Oxygen Delivery Method Room Air 02/19/24 14:01 BMI result Body Mass Index 19.5 Const General: cooperative and no acute distress Nutritional Appearance: underweight Orientation/consciousness: patient oriented x3 HEENT Head: Yes normocephalic Ears: external ears normal, TM normal on the right and TM abnormal (left ear) bulging and erythematous; not bullous, not dull, not with effusion, not perforated and not retracted General nose exam: Normal nasal mucous membranes and turbinates present Face and sinus: Yes sinuses nontender Mouth: moist mucous membranes and Abnormal oral and palatal mucosa present erythematous and white patches Throat: Yes posterior oropharynx normal Resp Effort & Inspection: normal respiratory effort Auscultation: no crackles, no rales, rhonchi and wheezes Cardio Heart sounds: S1 normal heart sound present and S2 normal heart sound present Neuro General: patient oriented x3 Results AMB Rapid Strep AMB Rapid Strep Negative Last Edit by Mitul Jason CMA on 02/19/24 14:19 Assessment & Plan Assessment & Plan (1) Unresolved pneumonia: Code(s): J18.9 - Pneumonia, unspecified organism Plan: Pt never completed her Abx course for Pneumonia. Most likely unresolved. Will tx with Doxy and Azithro Advised to take medicines in a full stomach. Advised to stop smoking Orders: Orders AMB Rapid Strep Screen Today Z13.9 - Encounter for screening, unspecified Medications: New doxycycline hyclate 100 mg PO BID 10 days 20 caps 0RF J18.9 - Pneumonia, unspecified organism azithromycin 500 mg PO DAILY 3 days 3 tabs 0RF J18.9 - Pneumonia, unspecified organism Coding Level of Care Code Est Pt Level 3 (78336) Diagnoses Unresolved pneumonia J18.9 Time Spent (min) 15
[2024-02-19 14:01] VITALS: BP 114/70; PULSE 77; TEMP 36.6; O2SAT 95; BMI 19.5
== END 2024-02-19 14:25 | disposition home or self-care (01) ==
PROVIDERS: PCP Internal Medicine; Visit Provider Nurse Practitioner Family
DX: J18.9 Pneumonia, unspecified organism (principal); Z13.9 Encounter for screening, unspecified
CPT/HCPCS: 87880; 99213

== ENCOUNTER 2024-04-11 15:01 | Outpatient (REF) | payer MEDICARE, OTHER, SELFPAY | END 2024-04-11 15:02 | disposition home or self-care (01) | LOC: HO.LAB 15:01 | PROVIDERS: PCP Internal Medicine | DX: R06.02 Shortness of breath (principal); M25.512 Pain in left shoulder | CPT/HCPCS: 99212 ==

== ENCOUNTER → 2024-04-11 15:01 | Outpatient (AMB) | payer MEDICARE, OTHER, SELFPAY ==
--- NOTE | 2024-04-11 15:05 | MHC.OFFWIV ---
Intake Vital Signs 04/11/24 15:10 Height 5 ft Weight 108 lb BMI 21.1 BP 100/64 Blood Pressure Location Rt brachial Position Sitting Pulse 79 Pulse Source Pulse Oximeter Temp 97 F Temp Source Oral Pulse Oximetry (%) 90 L Oxygen Delivery Method Room Air Intake Visit Reasons: EP trouble breathing & shoulder pain Intake Note: Patient here for difficulty breathing which started today. She also mentioned that her left shoulder has been painful. Patient Tobacco Use Status: Current everyday Tobacco user Allergies Sulfa (Sulfonamide Antibiotics) [SULFA (SULFONAMIDE ANTIBIOTICS)] Allergy (Mild, Verified 04/11/24 15:10) HIVES Penicillins [PENICILLINS] Allergy (Unknown, Verified 04/11/24 15:10) UNKNOWN Do you need a note to return to daycare/school/sports/work: No HPI HPI Comments History of Present Illness Details This is a 74-year-old female with a past medical history of COPD not currently oxygen dependent presenting for evaluation of atraumatic left shoulder pain and sudden onset of dyspnea after waking from a nap this afternoon. Patient states that she feels ?hot and cold? but does not endorse any overt fevers or chills. Patient states that she had mild discomfort in her left anterior shoulder this afternoon, took an ibuprofen and lay down for a nap. When the patient woke up from her nap the left shoulder pain has significantly worsened and she felt acutely short of breath. Patient denies any chest pain however points to her left upper anterior chest when describing her anterior left shoulder pain. Of note, patient uses tobacco products daily. [facility] Medical History Upper respiratory infection Sinusitis, acute Reactive airway disease Social History Patient Tobacco Use Status: Current everyday Tobacco user Review of Systems Const All systems reviewed & are unremarkable except as noted in HPI and below Denies chills, Denies fever(s) and Reports other (feels hot and cold ) Eyes Reports no additional complaints ENT Reports no additional complaints Card Denies chest pain, Reports dyspnea and Reports dyspnea on exertion Resp Denies cough, Reports dyspnea and Reports dyspnea on exertion GI Reports no additional complaints, Denies nausea and Denies vomiting Musc Reports arthralgias (left anterior shoulder pain; no trauma) Skin/Breast Reports system reviewed and no additional complaints, except as documented Neuro Reports no additional complaints Psych Reports no additional complaints Endo Reports no additional complaints Aller/Immun Reports no additional complaints Physical Exam Patient is hypoxic and smells of tobacco use Const General: cooperative, alert, awake, ill appearing and tired appearing Nutritional Appearance: thin Orientation/consciousness: patient oriented x3 Limitations: no limitations Chest Chest palpation & inspection: tenderness other (anterior left shoulder and upper chest wall pain) Resp Effort & Inspection: able to speak in complete sentences, labored and pursed lip breathing Auscultation: rales and diminished lung sounds Cardio Rate: regular rate Rhythm: regular rhythm Neuro General: patient oriented x3 Extrem Left upper extremity: normal to inspection, full ROM and shoulder/upper arm (no pain to palpation of the left clavicle; L. anterior shoulder pain) Psych Appearance: grossly normal Attitude: Guarded attititude/behavior present Insight: Poor insight present (Psych) Judgement: Fair judgement present (Psych) Results Reviewed Results Reviewed: EKG 70 normal sinus Assessment & Plan Assessment & Plan (1) Dyspnea: Comment: Patient is hypoxic on room air. Code(s): R06.00 - Dyspnea, unspecified Qualifiers: Dyspnea type: shortness of breath Qualified Code(s): R06.02 - Shortness of breath Plan: Chest x-ray and EKG are reviewed. Given this patient's dyspnea and left anterior chest pain, patient will be transferred to the emergency department. Expect called to the charge nurse. (2) Left anterior shoulder pain: Comment: Imaging of left shoulder is deferred at this time. Code(s): M25.512 - Pain in left shoulder Plan: Patient to be transferred to the emergency department for ongoing evaluation and care. Orders: Orders AMB EKG-In Office Today R06.00 - Dyspnea, unspecified XR chest 2V Today R06.00 - Dyspnea, unspecified SARS-CoV2/FLU/RSV Today R06.00 - Dyspnea, unspecified Coding Level of Care Code Est Pt Level 4 (19272) Diagnoses Shortness of breath R06.02 Dyspnea type: shortness of breath Left anterior shoulder pain M25.512 Time Spent (min) 25
[2024-04-11 15:10] VITALS: BP 100/64; PULSE 79; TEMP 36.1; O2SAT 90; BMI 21.1
== END ==
PROVIDERS: PCP Internal Medicine; Visit Provider Physician Assistant
DX: R06.02 Shortness of breath (principal); M25.512 Pain in left shoulder

== ENCOUNTER 2024-04-11 15:17 | Outpatient (REF) | payer MEDICARE, SELFPAY ==
--- NOTE | ~2024-04-11 | XR_ITS ---
EXAMINATION: XR CHEST CLINICAL INFORMATION: Dyspnea. COMPARISON: Chest radiograph 02/06/2024. TECHNIQUE: 2 views of the chest were obtained. FINDINGS: Normal appearance of the cardiomediastinal silhouette. Previously seen small left pleural effusion and left lower lobe infiltrate are resolved. No new focal air space opacities. Similar degree of diffuse interstitial prominence. Thoracic spondylosis. No acute osseous findings. Redemonstration of surgical clips overlying the left axillary region. XR/XR chest 2V IMPRESSION: 1. Interval resolution of faint left lower lobe opacities and small left pleural effusion. 2. No new focal airspace opacities. 3. Similar degree of diffuse interstitial prominence which is nonspecific and could be associated with small airways disease. Electronically signed by: Sada Milian MD 04/12/2024 12:46 PM EDT
[2024-04-12 12:25] LABS: Influenza A PCR NEGATIVE (Negative); Influenza B PCR NEGATIVE (Negative); Resp Syncy Virus RNA Qual PCR NEGATIVE (Negative); SARS COV2 PCR INHOUSE NEGATIVE (Negative)
== END 2024-04-11 15:18 | disposition home or self-care (01) ==
LOC: HO.HMGCX 15:17
PROVIDERS: PCP Internal Medicine; Visit Provider Physician Assistant
DX: R06.00 Dyspnea, unspecified (principal)
CPT/HCPCS: 0241U; 71046

== ENCOUNTER 2024-04-11 16:09 | Emergency (ER) | payer MEDICARE, SELFPAY ==
[2024-04-11] VITALS (7 sets, daily range): BP systolic 90–116; BP diastolic 40–52; PULSE 69–73; RESP 17–20; TEMP 36.1–36.9; O2SAT 88–94; BMI 19.2
--- NOTE | ~2024-04-11 | CT_ITS ---
EXAMINATION: CT ANGIOGRAM CHEST CLINICAL INFORMATION: Dyspnea. COMPARISON: None available. TECHNIQUE: Multiple axial images were obtained through the chest after the administration of 65 mL of Omnipaque 350 intravenous contrast. Extensive vascular post-processing including two-dimensional and three-dimensional reformatted images were created and reviewed on an independent workstation. This CT examination was performed using dose optimization techniques as appropriate, variously including the following: *Automated exposure control *Adjustment of mA and/or kV according to patient size (this includes techniques or standardized protocols for targeted exams where dose is matched to indication/reason for exam; i.e. extremities or head) *Use of iterative reconstruction technique DLP: 198 mGy-cm FINDINGS: QUALITY OF STUDY/CONTRAST BOLUS: Satisfactory. PULMONARY ARTERIES: No pulmonary emboli. THORACIC AORTA: No aneurysm. LUNG: There is lingular, right middle lobe and right lung base scarring and/or subsegmental atelectasis. PLEURA: No pleural effusion or pneumothorax. MEDIASTINUM: Normal heart size. No pericardial effusion. No hilar or mediastinal lymphadenopathy. No evidence of septal bowing or right heart strain. The right thyroid gland is enlarged and heterogeneous. CORONARY ARTERY CALCIFICATION: None visualized on this study. CHEST WALL/AXILLA: No axillary or internal mammary lymphadenopathy. OSSEOUS STRUCTURES: No acute or suspicious osseous abnormality. UPPER ABDOMEN: Unremarkable. No reflux of contrast into the hepatic veins to suggest elevated right heart pressures. CT/CT angio chest PE protocol IMPRESSION: 1. No evidence of pulmonary embolism. 2. There is lingular, right middle lobe and right lung base scarring and/or subsegmental atelectasis. 3. The right thyroid gland is enlarged and heterogeneous. Fleischner guidelines were followed. Electronically signed by: Andres Gonsalez MD 04/12/2024 01:10 AM EDT
--- NOTE | ~2024-04-11 | US_ITS ---
EXAMINATION: US TRIPLEX LOWER EXTREMITY, RIGHT CLINICAL INFORMATION: Pain. COMPARISON: None available. TECHNIQUE: Color-flow triplex imaging with spectral analysis and compression Doppler were performed on the right lower extremity. FINDINGS: Respiratory variation, normal compression and augmented flow are noted throughout the right lower extremity. The visualized common femoral vein, superficial femoral vein, profunda femoral vein, popliteal vein and midcalf peroneal and posterior tibial venous segments show no evidence of deep venous thrombosis. There is no Maurer's cyst. US/US venous duplex LE RT IMPRESSION: No evidence of deep venous thrombosis involving the right lower extremity. Electronically signed by: Francois Alexander DO 04/11/2024 07:57 PM EDT
--- NOTE | ~2024-04-11 | XR_ITS ---
EXAMINATION: XR CHEST CLINICAL INFORMATION: Dyspnea. COMPARISON: Chest radiograph dated February 06, 2024. TECHNIQUE: Frontal view of the chest was obtained. FINDINGS: The heart is normal in size. No consolidation. No pleural effusion or pneumothorax. There are surgical clips over the left axilla. No acute osseous abnormality. XR/XR chest 1V IMPRESSION: No acute cardiopulmonary disease. Electronically signed by: Francois Alexander DO 04/11/2024 07:56 PM EDT
--- NOTE | 2024-04-11 16:25 | ED.SOB ---
HPI - SOB/Dyspnea General Chief Complaint: Dyspnea Stated Complaint: chc sent for ct scan and bloodwork Time Seen by Provider: 04/11/24 18:33 Source: patient, family, RN notes reviewed and old records reviewed Mode of arrival: ambulatory Limitations: no limitations History of Present Illness ED Provider: Wendy FLORES Narrative: 74-year-old female with past medical history significant for COPD not on chronic O2 presents for evaluation of shortness of breath. The patient also complains of left shoulder pain that seems worse with movement. Her shortness of breath has been on and off for the last few months. She states since August of this year she has been diagnosed with pneumonia 3 different times This started after she was diagnosed with COVID-19 in August The patient denies any chest pain, back pain. She is a continuous smoker Denies any fevers, chills, sick contacts She reports that her right leg is not currently swollen but occasionally swells up No other complaints or concerns at this time Related Data Home Medications ?Medication ?Instructions ?Recorded ?Confirmed ipratropium 18 mcg-albuterol 103 spray inhalation 02/19/24 mcg/actuation aerosol inhaler Previous Rx's ?Medication ?Instructions ?Recorded azithromycin 500 mg tablet 500 mg PO DAILY 3 days #3 tabs 02/19/24 doxycycline hyclate 100 mg capsule 100 mg PO BID 10 days #20 caps 02/19/24 prednisone 20 mg tablet 40 mg (2 x 20 mg) PO DAILY #10 tabs 04/11/24 Allergies Allergy/AdvReac Type Severity Reaction Status Date / Time Sulfa (Sulfonamide Allergy Mild HIVES Verified 04/11/24 16:28 Antibiotics) [SULFA (SULFONAMIDE ANTIBIOTICS)] Iodinated Contrast Media Allergy Unknown Difficulty Verified 04/11/24 19:33 [IV Contrast Dye] Breathing Penicillins [PENICILLINS] Allergy Unknown UNKNOWN Verified 04/11/24 16:28 Review of Systems Constitutional: Constitutional: Denies body ache(s), Denies chills, Denies fever(s), Reports malaise and Reports weakness Eyes: Eyes: Denies blurry vision ENT: Denies sore throat Cardiovascular: Cardiovascular: Denies chest pain and Reports dyspnea Respiratory: Respiratory: Reports chest congestion, Reports cough, Reports dyspnea and Reports wheezing Gastrointestinal: Gastrointestinal: Denies abdominal pain, Denies nausea and Denies vomiting Musculoskeletal: Musculoskeletal: Denies back pain, Reports arthralgias, Denies joint swelling and Denies limited range of motion Integumentary/Breasts: Skin/Breast: Denies rash Neurologic: Reports weakness Allergic/Immunologic: Allergic/Immunologic: Reports wheezing PMFSH Past Medical History Medical History Upper respiratory infection Sinusitis, acute Reactive airway disease Social History Social History Patient Tobacco Use Status: Current everyday Tobacco user Smoked in Last 30 Days: Yes Use of substances other than those prescribed or required for medical reasons: No Advance Directives: No Advance Directives Information Provided: No Do you have a plan to hurt others: No Plan Physical Exam Vital Signs: Vital Signs: Last Vital Signs Temp 98.2 F 04/12/24 01:54 Pulse 83 04/12/24 01:54 Resp 12 04/12/24 01:54 BP 106/50 L 04/12/24 01:54 Pulse Ox 95 04/12/24 01:54 O2 Del Method Nasal Cannula 04/12/24 01:54 O2 Flow Rate 2 04/12/24 01:54 BMI result Body Mass Index 19.2 Const: General: healthy appearing, comfortable, no acute distress, alert and awake Nutritional Appearance: well nourished Orientation/consciousness: patient oriented x3 HEENT: Head: Yes normocephalic and Yes atraumatic Eyes: Eyelids: Yes eyelids normal Conjunctivae: conjunctivae normal Sclerae: sclerae normal Corneas: corneas normal Pupils: Equal, round and reactive pupils present EOM: EOMs intact bilaterally Neck: Neck: Yes full ROM Resp: Other: Mild expiratory wheeze throughout Effort & Inspection: normal respiratory effort, able to speak in complete sentences and not labored Auscultation: diminished lung sounds Cardio: Rate: regular rate Rhythm: regular rhythm Skin: General skin exam: elasticity normal Neuro: General: patient oriented x3 Cranial nerves: Yes Equal, round and reactive pupils present and Yes Bilaterally intact EOM present Cognition (Neuro): normal cognition Course Course Course Narrative: This is a Rapid Medical Exam performed in triage by Alexus Lira PA-C. Full HPI, ROS and PE to be performed by primary ED provider. 74-year-old female with a past medical history of COPD, active smoker, presenting to the ED sent in from urgent care for hypoxia 90% on RA in office (NOT on O2 at home), SOB, and left shoulder pain worsening since COVID in August. +chills PE: Hypotensive, pale, Hypoxic 88% on RA > 92% on 2L NC, diminished throughout Plan: EKG, labs, viral testing, CXR, bronch protocol Reevaluation(s) Reevaluation #1: CTA negative for PE Time: 02:11 Medications Administered Discontinued Medications Generic Name Dose Route Start Last Admin Trade Name Freq PRN Reason Stop Dose Admin Albuterol/Ipratropium 3 ml 04/11/24 21:12 04/11/24 21:21 Albuterol/Iprat 2.5/0.5mg 3 Ml Ampul.Neb INHALE 04/11/24 21:13 3 ml ONCE ONE Administration Albuterol Sulfate 2.5 mg/ 0 mg 04/11/24 16:41 04/11/24 16:47 Albuterol/Ipratropium 3 ml INHALE 04/11/24 16:42 1 dose ONCE ONE Administration Diphenhydramine HCl 50 mg 04/11/24 22:30 04/11/24 23:33 Diphenhydramine Hcl 50 Mg/Ml Vial IVPUSH 04/11/24 22:31 50 mg ONCE ONE Administration Sodium Chloride 500 mls @ 999 mls/hr 04/11/24 21:30 04/12/24 00:30 Ns IV 04/11/24 22:00 Infused .Q31M VERN Infusion Iohexol 65 ml 04/12/24 00:22 04/12/24 00:23 Iohexol 350 Mg/Ml 100 Ml Infus..Btl IV 04/12/24 00:23 65 ml ONCE ONE Administration Methylprednisolone Sodium Succinate 125 mg 04/11/24 19:33 04/11/24 20:03 Methylprednisolone Sod Succ 125 Mg/2 Ml Vial IVPUSH 04/11/24 19:34 125 mg ONCE ONE Administration Medical Decision Making Medical Decision Making [facility] Narrative: 74-year-old female presents for evaluation of shortness a breath, she went to urgent care this morning and was referred to the ER for ?a CT scan to evaluate for blood clots. ? Patient has a history of COPD, she is not on supplemental oxygen at baseline. She was 89% on arrival which improved with a DuoNeb treatment. The patient does not want to be admitted to the hospital, she made that clear from the beginning. Her oxygen saturation is 92% and above after DuoNeb treatment. She reports her baseline is 94%. Her chest x-ray shows no evidence of pneumonia, her blood pressure was soft, we will give IV fluids. I did order a right lower extremity DVT given the intermittent swelling which was negative for DVT. Differential Diagnosis Differential Diagnoses: The differential diagnosis associated with the presentation includes COPD exacerbation Pneumonia Bronchitis PE DVT Admission/Observation Consideration of admission/observation: Escalation of care including admission/observation considered Consider admission due to hypoxia Lab Data MDM Lab Attestation statement: I reviewed the patient's lab results. CBC shows no evidence ketosis, anemia or thrombocytopenia. Chemistries have no significant lab abnormalities. 04/11/24 17:15 04/11/24 17:13 Labs: Lab Results 04/11/24 04/11/24 Range/Units 17:13 17:15 WBC 9.4 (4.8-10.8) X10*3/uL RBC 4.53 (4.20-5.50) X10*6/uL Hgb 14.6 (12.0-16.0) g/dl Hct 42.9 (37.0-47.0) % MCV 94.7 (80.0-98.0) fL MCH 32.2 (27.0-33.0) pg MCHC 34.0 (31.0-35.0) g/dl RDW 12.9 (11.0-16.0) % Plt Count 285 (160-400) X10*3/uL MPV 9.8 (9.4-12.3) fL Immature Gran % (Auto) 0.3 (0.0-0.4) % Neut % (Auto) 75.0 H (45-73) % Lymph % (Auto) 15.0 L (20-40) % [place] % (Auto) 6.5 (2-11) % Eos % (Auto) 2.6 (0-4) % Baso % (Auto) 0.6 (0-2) % Lymph # (Auto) 1.4 (1.2-4.9) X10*3/uL [place] # (Auto) 0.6 (0.1-1.2) X10*3/uL Eos # (Auto) 0.2 (0.0-0.4) X10*3/uL Baso # (Auto) 0.1 (0.0-0.2) X10*3/uL Abs Immat Gran (auto) 0.03 (0.00-0.03) X10*3/uL Absolute Neuts (auto) 7.1 (2.0-8.3) x10*3/uL Absolute Nucleated RBC 0.000 (0.0-0.012) X10*3/uL Nucleated RBC % (auto) 0.0 (0.0-0.2) /100WBC PT 11.3 (10.9-12.4) SEC INR 1.0 (0.9-1.1) Sodium 143 (135-145) mmol/L Potassium 3.6 (3.3-5.1) mmol/L Chloride 106 (96-108) mmol/L Carbon Dioxide 26 (22-29) mmol/L Anion Gap 15 (12-20) BUN 10 (9-16) mg/dL Creatinine 0.83 (0.5-1.4) mg/dL Estim Creat Clear Calc 46.1 Estimated GFR > 60 Random Glucose 113 (60-115) mg/dL Calcium 9.7 (8.4-10.2) mg/dL Total Bilirubin 0.6 (0.0-1.0) mg/dL Direct Bilirubin 0.2 (0.0-0.5) mg/dL AST 13 (5-31) U/L ALT 8 (0-31) U/L Alkaline Phosphatase 80 (39-117) U/L Troponin I High Sens < 2.7 (<3.5-17.0) ng/L B-Natriuretic Peptide 16 (<100) pg/mL Total Protein 7.6 (6.5-8.0) g/dL Albumin 4.1 (3.5-5.0) g/dL Influenza Type A (PCR) NEGATIVE (Negative) Influenza Type B (PCR) NEGATIVE (Negative) RSV RNA Qual (PCR) NEGATIVE (Negative) SARS-CoV-2 RNA (RT-PCR) NEGATIVE (Negative) Independent Interpretation I performed an independent interpretation of an: EKG (Sinus rhythm with a short [place], rate of [address] segment elevation or depression) and Plain X-Ray (No focal infiltrates) Discharge Plan Discharge Clinical Impression: Acute dyspnea Patient Disposition: Still a Patient Instructions: COPD (Chronic Obstructive Pulmonary Disease) (ED) Additional Instructions: Your workup in the ER today was reassuring, your labs were reassuring. Your ultrasound did not show any evidence of DVT Take prednisone 40 mg daily for the next 5 days Prescriptions: New prednisone 20 mg tablet 40 mg PO DAILY Qty: 10 0RF No Action ipratropium-albuterol 18-103 mcg/actuation aerosol inhalation azithromycin 500 mg tablet 500 mg PO DAILY 3 Days Qty: 3 0RF doxycycline hyclate 100 mg capsule 100 mg PO BID 10 Days Qty: 20 0RF Print Language: Spanish
--- NOTE | 2024-04-11 16:27 | ECG_ITS ---
Test Reason : sob Blood Pressure : / mmHG Vent. Rate : 073 BPM Atrial Rate : 073 BPM P-R Int : 110 ms QRS Dur : 074 ms QT Int : 400 ms P-R-T Axes : 057 -43 052 degrees QTc Int : 440 ms Sinus rhythm with short [place] Left axis deviation Abnormal ECG No previous ECGs available Referred By: Alexus Lira Electronically Signed By:KURT HAWKINS
[2024-04-11] MEDS: Albuterol Sulfate 2.5 MG, Albuterol/Iprat 2.5/0.5MG 3 ML 3 ML INHALE (16:47)
[2024-04-11 17:19] LABS: MANUAL DIFF FLAG NO
[2024-04-11 17:21] LABS: Basophils Absolute Auto 0.1 X10*3/uL (0.0-0.2); Basophils Percent Auto 0.6 % (0-2); Eosinophils Absolute Auto 0.2 X10*3/uL (0.0-0.4); Eosinophils Percent Auto 2.6 % (0-4); Hematocrit 42.9 % (37.0-47.0); Hemoglobin 14.6 g/dl (12.0-16.0); Imm Gran Abs Auto 0.03 X10*3/uL (0.00-0.03); Imm Gran Pct Auto 0.3 % (0.0-0.4); Lymphocytes Absolute Auto 1.4 X10*3/uL (1.2-4.9); Mean Corpuscular Hemoglobin 32.2 pg (27.0-33.0); Mean Corpuscular Volume 94.7 fL (80.0-98.0); Mean Platelet Volume 9.8 fL (9.4-12.3); Monocytes Absolute Auto 0.6 X10*3/uL (0.1-1.2); Monocytes Percent Auto 6.5 % (2-11); Neutrophils Absolute Auto 7.1 x10*3/uL (2.0-8.3); Platelet Count 285 X10*3/uL (160-400); Red Blood Count 4.53 X10*6/uL (4.20-5.50); Red Cell Distribution Width 12.9 % (11.0-16.0); White Blood Count 9.4 X10*3/uL (4.8-10.8)
[2024-04-11 17:31] LABS: Prothrombin Time 11.3 SEC (10.9-12.4)
[2024-04-11 17:36] LABS: Alanine Aminotransferase 8 U/L (0-31); Albumin Level 4.1 g/dL (3.5-5.0); Alkaline Phosphatase 80 U/L (39-117); Anion Gap 15 (12-20); Aspartate Amino Transferase 13 U/L (5-31); Bilirubin Direct 0.2 mg/dL (0.0-0.5); Bilirubin Total 0.6 mg/dL (0.0-1.0); Blood Urea Nitrogen 10 mg/dL (9-16); Calcium 9.7 mg/dL (8.4-10.2); Carbon Dioxide 26 mmol/L (22-29); Chloride 106 mmol/L (96-108); Creatinine Clr Calc Pharmacy 46.1; Estimated Glomerular Filt Rate > 60; Glucose Random 113 mg/dL (60-115); Potassium 3.6 mmol/L (3.3-5.1); Sodium 143 mmol/L (135-145); Total Protein 7.6 g/dL (6.5-8.0)
[2024-04-11 17:43] LABS: B Type Natriuretic Peptide 16 pg/mL (<100)
[2024-04-11 17:45] LABS: Troponin-I High Sensitivity < 2.7 ng/L (<3.5-17.0)
[2024-04-11 17:59] LABS: Influenza A PCR NEGATIVE (Negative); Influenza B PCR NEGATIVE (Negative); Resp Syncy Virus RNA Qual PCR NEGATIVE (Negative); SARS COV2 PCR INHOUSE NEGATIVE (Negative)
--- NOTE | 2024-04-11 19:34 | PC.NURSE ---
Patient reported that she has had reaction of difficulty breathing when given IV contrast dye in the past. Doesn't recall what type of medication she received, but stated I think it was IV dye. I had a reaction when they did a CT scan or an MRI or something . New allergy added to patient's chart. Original plan was to obtain CT PE study. JENNIFER Jimenez notified and came to bedside to speak with the patient. Patient agreed to alternate plan of receiving preventative medications and agreed to monitor with plan to perform CT PE in 4 hours. Ultrasound beginning at this time.
[2024-04-11] MEDS: methylPREDNISolone Sod Succ 125 MG/2 ML VIAL IVPUSH (20:03)
[2024-04-11] MEDS: Albuterol/Iprat 2.5/0.5MG 3 ML AMPUL.NEB INHALE (21:21)
[2024-04-11] MEDS: 0.9 % Sodium Chloride 500 ML 999 ML IV (23:33)
[2024-04-11] MEDS: diphenhydrAMINE HCL 50 MG/ML VIAL IVPUSH (23:33)
[2024-04-12] MEDS: iohexoL 350 MG/ML 100 ML INFUS..BTL 65 ML IV (00:23)
[2024-04-12 01:54] VITALS: BP 106/50; PULSE 83; RESP 12; TEMP 36.8; O2SAT 95
[2024-04-12 03:17] VITALS: BP 106/50; PULSE 83; RESP 12; TEMP 36.8; O2SAT 95
== END 2024-04-12 02:55 | disposition home or self-care (01) ==
PROVIDERS: Physician Assistant; Emergency Provider Emergency Medicine; PCP Internal Medicine
DX: R06.00 Dyspnea, unspecified (principal); R06.02 Shortness of breath; I95.9 Hypotension, unspecified; M79.89 Other specified soft tissue disorders; Z03.818 Encounter for observation for suspected exposure to other biological agents ruled out; R05.9 Cough, unspecified; M25.512 Pain in left shoulder; F17.210 Nicotine dependence, cigarettes, uncomplicated; J44.9 Chronic obstructive pulmonary disease, unspecified; Z79.899 Other long term (current) drug therapy
CPT/HCPCS: 0241U; 71045; 71275; 80048; 80076; 83880; 84484; 85025; 85610; 93005; 93971; 94640; 96361; 96374; 96375; 99284; 99285; J1200; J2919; Q9967

== ENCOUNTER 2025-06-05 12:48 | Outpatient (REF) | payer MEDICARE, OTHER, SELFPAY ==
--- NOTE | ~2025-06-05 | XR_ITS ---
EXAMINATION: XR CHEST CLINICAL INFORMATION: R05.9 - Cough, unspecified COMPARISON: Chest radiograph on April 11, 2024 TECHNIQUE: 2 views of the chest were obtained. FINDINGS: Lungs: Very minimal haziness in the medial aspect of the right lung base. Left lung appears clear. Pleura: No pleural effusion or pneumothorax. Heart/Mediastinum: Cardiomediastinal silhouette is within normal limits. Bones: No acute findings. XR/XR chest 2V IMPRESSION: Very minimal haziness in the medial aspect of the right lung base could represent a combination of airspace disease and atelectasis. Electronically signed by: Naya Mirza MD 06/05/2025 01:58 PM EST
[2025-06-05 18:18] LABS: Resp Syncy Virus RNA Qual PCR NEGATIVE (Negative); SARS COV2 PCR INHOUSE NEGATIVE (Negative)
== END 2025-06-05 12:49 | disposition home or self-care (01) ==
LOC: HO.HMGCX 12:48
PROVIDERS: PCP Internal Medicine; Visit Provider Physician Assistant
DX: J22 Unspecified acute lower respiratory infection (principal); H65.112 Acute and subacute allergic otitis media (mucoid) (sanguinous) (serous), left ear; R09.89 Other specified symptoms and signs involving the circulatory and respiratory systems
CPT/HCPCS: 71046; 87637; 99202

== ENCOUNTER 2025-06-05 12:48 | Outpatient (AMB) | payer MEDICARE, OTHER, SELFPAY ==
--- NOTE | 2025-06-05 12:50 | AM.OFFWIN_ITS ---
Intake Vital Signs 06/05/25 12:51 Height 5 ft 4 in Weight 115 lb BMI 19.7 BP 96/62 Blood Pressure Location Lt brachial Position Sitting Pulse 88 Pulse Source Pulse Oximeter Temp 98.1 F Temp Source Oral Pulse Oximetry (%) 94 Oxygen Delivery Method Room Air Intake Visit Reasons: EP Cough, left eye pain Intake Note: Patient presents c/o cough, body aches, hot/cold x1 week. Patient also says her left ear was draining the other day. Patient Tobacco Use Status: Current everyday Tobacco user Allergies Sulfa (Sulfonamide Antibiotics) (SULFA (SULFONAMIDE ANTIBIOTICS)) Allergy (Mild, Verified 06/05/25 12:54) HIVES Iodinated Contrast Media (IV Contrast Dye) Allergy (Unknown, Verified 06/05/25 12:54) Difficulty Breathing Penicillins (PENICILLINS) Allergy (Unknown, Verified 06/05/25 12:54) UNKNOWN HPI HPI Comments History of Present Illness Details History - The patient is a 75 year old individua l presenting with cough and possible ear infection. - The patient has a history of COPD but reports that the current cough is different from usual symptoms. - The cough is productive with clear to dark mucus, predominantly in the morning, and is accompanied by a rattling sound in the chest. - The patient denies symptoms of shortne ss of breath or wheezing but reports intermittent fever and chills. - The patient reports fluid drainage fro m the left ear, which was initially clear but later became brown and gooey. - The patient has a history of ear infec tions and hearing problems in the left ear. - The patient has a long history of smok ing, continuing to smoke despite awareness of its health risks. Is part of a lung cancer screening program with her PCP. Review of Systems - Respiratory: Reports productive cough with clear to dark mucus, denies dyspnea or wheezing. - Ears: Reports fluid drainage from the left ear, denies hearing loss at present. - General: Reports intermittent fever an d chills, denies consistent fever. All systems reviewed and are unremarkable except as noted in HPI Physical Exam General: Cooperative, healthy appearing, comfortable and no acute distress Orientation/consciousness: Patient oriented x3 Limitations: No limitations Head: Normal to inspection Ears: Hearing grossly normal bilaterally, external ears normal, EAC's normal bilaterally, left TM with erythema, purulence, no light reflex, bulging, loss of landmarks. Right TM normal. Nose: Normal external nose present, Normal nares present, nasal discharge present Face and sinus: Normal facial exam, sinuses slightly tender Mouth: Normal oral and palatal mucosa present and moist mucous membranes Throat: tonsils normal, no exudates, uvula midline, posterior oropharynx erythema Eyes: Appearance normal, both eyes and all related structures Neck: Normal visual inspection, full ROM Respiratory: slightly dim and left upper wheeze. Normal respiratory effort, able to speak in complete sentences, actively coughing, no respiratory distress, not tachypneic, no tripod positioning and no use of accessory muscles. Cardiovascular: Regular rate and rhythm. Normal S1 and S2 Skin: No rashes or lesions noted Neuro: Patient oriented x3 Extremities: Normal to inspection and Yes no clubbing, cyanosis or edema PFSH Medical History Upper respiratory infection Sinusitis, acute Reactive airway disease Social History Patient Tobacco Use Status: Current everyday Tobacco user Physical Exam Vital Signs: Last Vital Signs Temp 98.1 F 06/05/25 12:51 Pulse 88 06/05/25 12:51 BP 96/62 06/05/25 12:51 Pulse Ox 94 06/05/25 12:51 Oxygen Delivery Method Room Air 06/05/25 12:51 BMI result Body Mass Index 19.7 Assessment & Plan Assessment & Plan (1) Lower respiratory infection (e.g., bronchitis, pneumonia, pneumonitis, pulmonitis): Code(s): J22 - Unspecified acute lower respiratory infection Plan: Plan Patient was informed and verbally consented to the use of an ambient scribe for clinic note documentation during this visit. 1. Chronic Obstructive Pulmonary Disease (Copd) exacerbation 2/2 bronchitis. - VSS, pt well appearing and PE remarkable for dim lungs with slight exp wheeze on left side. - Plan to administer a dose of steroids to help open airways and improve breathing. - Advised use of albuterol inhaler if experiencing wheezing or shortness of breath. - Ordered chest x-ray to rule out pneumonia. - Discussed the importance of smoking cessation and its impact on respiratory health. (2) Otitis media: Code(s): H66.90 - Otitis media, unspecified, unspecified ear Qualifiers: Otitis media type: mucoid Chronicity: acute Laterality: left Qualified Code(s): H65.112 - Acute and subacute allergic otitis media (mucoid) (sanguinous) (serous), left ear Plan: 2. Acute Otitis Media - Prescribed doxycycline for seven days to treat ear infection. - Advised to avoid dairy while taking doxycycline to prevent gastrointestinal upset. Orders: Orders SARS-CoV2/FLU/RSV Today R09.89 - Other specified symptoms and signs involving the circulatory and respiratory systems XR chest 2V Today R05.9 - Cough, unspecified Medications: New prednisone 40 mg (2 x 20 mg) PO QAM 10 tabs 0RF doxycycline hyclate 100 mg PO BID 14 tabs 0RF Coding Level of Care Code New Pt Level 4 (32356) Diagnoses Lower respiratory infection (e.g., bronchitis, pneumonia, pneumonitis, pulmonitis) J22 Acute mucoid otitis media of left ear H65.112 Otitis media type: mucoid Chronicity: acute Laterality: left
[2025-06-05 12:51] VITALS: BP 96/62; PULSE 88; TEMP 36.7; O2SAT 94; BMI 19.7
--- OUTSIDE RECORDS SUMMARY | 2025-06-05 13:10 | XMS_ITS | Clinical Summary ---
Author Organization [address] Address [address] [facility] [place] [address] Phone Care Team Providers Care Divisional Merchandising Manager Name Role Phone Margarita Galeano MD Primary Care Provider [phone] Allergies Active Allergy Reactions Criticality Noted Date Comments Iodinated Contrast Media Wheezing 04/21/2014 Penicillins Anaphylaxis High 02/14/2011 Sulfa (Sulfonamide Antibiotics) 02/14/2011 Other Reaction(s): Hives/Urticaria Medications ipratropium-albute roL (Combivent Respimat) 20-100 mcg/actuation inhaler 02/19/20 24 Active albuterol HFA (PROAIR HFA ; PROVENTIL HFA ; VENTOLIN HFA) 90 mcg/actuation inhaler INHALE 2 PUFFS EVERY 6 HOURS NEEDED FOR SHORTNESS OF BREATH OR WHEEZING 10/30/19 24 Active cholecalciferol (VITAMIN D-3) 50 mcg (2,000 unit) capsule Take 1 capsule (2,000 Units total) by mouth 1 (one) time each day. 07/25/19 24 Active diclofenac (VOLTAREN) 75 mg EC tabletIndications: Adhesive capsulitis of left shoulder,Osteoarth ritis of left shoulder, unspecified osteoarthritis type,Rotator cuff arthropathy of left shoulder Take 1 tablet (75 mg total) by mouth 2 (two) times a day. Do not crush, chew, or split. 60 tablet 2 09/19/19 25 Active Additional Information Patient not taking.Reported on 04/09/2025 solifenacin (VESICARE) 5 mg tabletIndications: bladder hyperactivity Take 1 tablet (5 mg total) by mouth 1 (one) time each day. Swallow tablet whole; do not crush, chew, or split. 30 tablet 2 04/09/20 25 025 Active mirabegron (Myrbetriq) 25 mg 24 hr tablet Take 1 tablet (25 mg total) by mouth 1 (one) time each day. 30 tablet 1 05/13/20 25 Active Active Problems Problem Noted Date Diagnosed Date Chronic pain in left shoulder 06/18/2024 Urinary incontinence 06/16/2024 Prediabetes 06/16/2024 COPD (chronic obstructive pu lmonary disease) ([facility] V24, [facility] V28) 10/23/2016 Osteopenia 10/15/2015 Overview (04/30/2024): 09/28 T score spine +2.8 hip -1.6 FRAX score 9.3% 10 year fracture risk Depression 12/13/2011 Cervical radiculopathy 12/01/2011 Postconcussion syndrome 12/01/2011 Vertigo 02/14/2011 History of breast cancer 07/16/1989 Overview (06/15/2024): Left, RT, lumpectomy, no chemo Encounters Date Type Department Care Team Description 05/13/2025 Telephone Urogynecology - [id number] [place] [address] Cynthia Oconnor MD 04/09/2025 1:00 PM EDT Office Visit Urogynecology - [address] [phone] Cynthia Oconnor MD OAB (overactive bladder) (Primary Dx); Urinary incontinence, unspecified type 03/31/2025 1:00 PM EDT Office Visit Orthopedic Surgery [address] [phone] Efrain Valle DPM Primary osteoarthritis of both feet (Primary Dx); Dermatophytosis of nail; Pain in toe of right foot; Pain in toe of left foot; Difficulty walking; Follow-up exam from Last 3 Months Immunizations Immunization Administration Dates Next Due Influenza Quadravalent, 0.5m l (Fluad) 65yo and older 05/02/2020 Influenza Quadrivalent, 0.5m l, preservative free (Fluarix; FluLaval; Fluzone) ages 6mo and older (Afluria) 3yo and older 04/25/2021 Influenza trivalent, 0.5mL ( Fluad) 65yo and older 05/29/2024,07/19/2023,04/25/2021,05/02,05/13/2015 Influenza trivalent, 0.5mL ( Fluzone High-dose) 65yo and older 07/19/2023 Influenza trivalent, with pr eservative (Fluzone; Afluria) 6mo and older 05/13/2015 Pneumococcal conjugate 13 va lent (Prevnar 13, PCV13) 2mo and older 05/02/2020,10/13/2015 Pneumococcal polysaccharide 23 valent (Pneumovax 23) 2yo and older 11/12/2013 Tdap Tetanus diptheria acell ular pertussis (Boostrix; Adacel) 7yo and older 11/12/2013 Surgical History Surgery Date Site/Laterality Comments CHOLECYSTECTOMY BREAST LUMPECTOMY 07/16/1989 breast cancer APPENDECTOMY OTHER SURGICAL HISTORY 08/27/2015 hysteroscopy, benign polyp BREAST BIOPSY : lt. & rt.-rt. -neg SCREENING MAMMOGRAM 08/16/2022 Bilateral Medical History Medical History Date Comments Vertigo 02/14/2011 Osteopenia 10/15/201509/28 T score spi ne 09/28 +2.8 spine hip -1.6 FRAX score 9.3% 10 year fracture risk COPD (chronic obstructive pu lmonary disease) ([facility] V24, [facility] V28) 10/23/2016 History of breast cancer 07/16/1989 lumpect tressa, no chemo Family History Medical History Relation Name Comments Breast cancer Aunt 1 m. aunt-60s maternal Diabetes Aunt 2 maternal Heart attack Father 70s Diabetes Maternal Grandmother Diabetes Mother 70s Leukemia Other 1 maternal cousin Breast cancer Other 2 m cousin 72 Relation Name Status Comments Aunt 1 m. aunt-60s Aunt 2 Father Maternal Grandmother Mother Other 1 Other 2 m cousin 72 Alive Social History Tobacco Use Types Packs/Day Years Used Date Smoking Tobacco: Every Day Cigarettes 1 59.2 Started: 1966 Passive Smoke Exposure: Current Smokeless Tobacco: Never Alcohol Use Standard Drinks/Week Comments No 0 (1 standard drink = 0.6 oz pur e alcohol) Housing Instability Answer Date Recorde d Are you worried that in the next 2 months you may not have stable housing? No 12/18/2024 Food Access & Nutrition Answer Date Rec orded Do you have access to a vari ety of food including fruits and vegetables? Yes 12/18/2024 Access to Healthcare Answer Date Record ed Within the last 3 months, ho w many times did you visit the emergency department for your medical care? 0 12/18/2024 Health Literacy Answer Date Recorded How often do you need to hav e someone help you when you read instructions, pamphlets, or other written material from your doctor or pharmacy? Sometimes 12/18/2024 Caregiver: How often do you need to have someone help you when you read instructions, pamphlets, or other written material from your doctor or pharmacy? Not on file 12/18/2024 Financial Risk Answer Date Recorded How hard is it for you to pa y for the very basics like food, housing, medical care, and air conditioning / heating? Somewhat hard 12/18/2024 Transportation Answer Date Recorded Has the lack of transportati on kept you from meetings, work, or from getting things needed for daily living? No Has the lack of transportati on kept you from medical appointments or from getting medications? No 12/18/2024 Social Isolation Answer Date Recorded How often do you feel lonely or isolated from those around you? Sometimes 12/18/2024 Food Risk Answer Date Recorded Within the past 12 months we worried whether our food would run out before we got money to buy more. Never true 12/18/2024 Within the past 12 months th e food we bought just didn't last and we didn't have money to get more. Never true 12/18/2024 Dependent Care Answer Date Recorded Do you need help finding or paying for care for your loved ones. For example, child care lead teacher or elderly care for an older adult? No 12/18/2024 Education Answer Date Recorded Do you think completing more education or training, like finishing a GED, going to college, or learning a trade, would be helpful for you? N/A 12/18/2024 Employment and Income Answer Date Recor ded During the last four weeks, have you been actively looking for work? No 12/18/2024 Living Situation Answer Date Recorded What is your living situation? Unrecognized valu e 12/18/2024 Comments No Sex and Gender Information Value Date Recorded Sex Assigned at Not on file Legal Sex Female 3:25 AM EST Gender Identity Not on file Sexual Orientation Not on file Obstetrics History Para Term AB IAB SAB Ectopic Multiple Livin g Live Births 3 3 3 3 Date Outcome GA Total Labor Labor/2nd/3rd Weight Sex Type Anes PTL Ya A1 A5 Name Clin Term Term Term Last Filed Vital Signs Vital Sign Reading Time Taken Comments Blood Pressure 114/70 04/09/2025 1:03 PM EDT Pulse 79 04/09/2025 1:03 PM EDT Temperature 35.7 C (96.3 F) 12/19/2024 1:09 PM EDT Respiratory Rate 18 12/19/2024 1:09 PM EDT Oxygen Saturation 96% 12/19/2024 1:09 PM EDT Inhaled Oxygen Concentration - - Weight 50.3 kg (111 lb) 04/09/2025 1:03 PM EDT Height 162.6 cm (5' 4 ) 04/09/2025 1:03 PM EDT Body Mass Index 19.05 04/09/2025 1:03 PM EDT Plan of Treatment Upcoming Encounters Date Type Department Care Team (Late st Contact Info) Description 06/22/2025 1:15 PM EST Office Visit Adult Medicine [address] [phone] Margarita Galeano MD [address] [place], [place] 06/29/2025 2:45 PM EST Office Visit Pulmonology - [address] [place] [address] Blanca Moon MD [address] [place] [phone] 07/22/2025 11:45 AM EST Office Visit Urogynecology - [address] [phone] Cynthia Oconnor MD [address] [place] [address] [place] [address] 09/28/2025 1:00 PM EDT Office Visit Orthopedic Surgery - [place] [address] [phone] Efrain Valle, DPM [address] [phone] 11/04/2025 2:00 PM EDT Appointment Radiology Department - [address] [phone] Health Maintenance Due Date Last Done Comments Zoster Vaccines (1 of 2) 1969 Osteoporosis Screening (Bone Density Screening) 06/24/2022 DTaP,Tdap,and Td Vaccines (2 - Td or Tdap) 11/13/2023 11/12/2013 COVID-19 Vaccine (4 - season) 2025 06/02/2021, 11/05/2020, 10/14/2020 Influenza Vaccine (#1) 2025 , 07/19/2023, 07/19/2023, Additional history exists RSV Immunization Adult Patients (1 - 1-dose 75+ series) 2025 Pneumococcal Vaccine: 50+ Years (3 of 3 - PCV20 or PCV21) 05/02/2025 05/02/2020, 10/13/2015, 11/12/2013 Colorectal Cancer Screening: Stool Based Tests (FOBT/FIT) 06/18/2025 06/18/2024 Falls Risk Assessment 12/18/2025 12/18/2024 Medicare Annual Wellness Visit 12/18/2025 12/18/2024 Social Influencers of Health Screening 12/18/2025 12/18/2024 Lung Cancer Screening (Low Dose CT) 02/13/2026 02/13/2025, 12/27/2023, 12/26/2023 Cholesterol Screening (Lipid Panel) 12/26/2029 12/26/2024, 07/19/2023 Hepatitis C Screening Completed 11/12/2013 Breast Cancer Screening Discontinued 10/29/19, 10/09/2023, 08/30/2022, Additional history exists Depression Screening Completed 12/18/2024 HIB Vaccines Aged Out No longer eligi ble based on patient's age to complete this topic HPV Vaccines Aged Out No longer eligi ble based on patient's age to complete this topic Hepatitis A Vaccines Aged Out No long er eligible based on patient's age to complete this topic Hepatitis B Vaccines Aged Out No long er eligible based on patient's age to complete this topic IPV Vaccines Aged Out No longer eligi ble based on patient's age to complete this topic MMR Vaccines Aged Out No longer eligi ble based on patient's age to complete this topic Meningococcal ACWY Vaccine Aged Out N o longer eligible based on patient's age to complete this topic Meningococcal B Vaccine Aged Out No l onger eligible based on patient's age to complete this topic RSV Immunization Patients Under 20 months Aged Out No longer eligible based on patient's age to complete this topic Varicella Vaccines Aged Out No longer eligible based on patient's age to complete this topic Goals Goal Patient Goal Type Associated Problems Recent Progress Patient-Stated? Author STG's= 6 visits General Yes Ken Jimenez, PT Note: Pt will report L shoulder pain of no more than 6/10 on VAS during use of L UE. Pt will report waking no more than 2x/night d/t L shoulder pain. Pt will demonstrate active L shoulder flex to 90 degrees or better for washing hair/styling hair. Pt will demonstrate combined left shoulder ext, adduction and IR to L4 for dressing behind back. Pt is Independent and with initial HEP of stretching. LTG's 12 visits General Yes Ken Jimenez, PT Note: Pt will report L shoulder pain of no more than 3/10 on VAS during use of L UE. Pt will report no longer waking at night d/t L shoulder pain. Pt will demonstrate active L shoulder flex to 9130 degrees or better for dressing overhead and 2 handed IADL's. Pt will demonstrate combined left shoulder ext, adduction and IR to L1for dressing behind back. Pt is Independent and with final HEP of strengthening. Procedures Procedure Name Priority Date/Time Associated Diagnosis Comments POC URINE AUTO W/O MICRO Routine 04/09/2025 1:45 PM EDT Urinary incontinence, unspecified type XR FOOT 3+ VIEWS RIGHT Routine 03/31/2025 1:01 PM EDT Follow-up exam CT LUNG SCREENING Routine 02/13/2025 1:3 0 PM EDT Encounter for screening for malignant neoplasm of respiratory organs Personal history of nicotine dependence LIPID PANEL WITH REFLEX TO DIRECT LDL Routine 12/26/2024 9:09 AM EDT Lipid screening MG MAMMO DIGITAL SCREENING W JAMARCUS BILAT Routine 10/28/2024 3:26 PM EDT Encounter for screening mammogram for breast cancer EXTERNAL STOOL BASED TESTS(FOBT/FIT) Routine 06/18/2024 10:47 AM EST HM HEPATITIS C SCREENING Routine 11/12/2013 from Last 3 Months or Most Recently Relevant to Health Maintenance Results * POC Urine Auto W/O Micro (04/09/2025 1:45 PM EDT) Glucose UA POC Negative Negative, Trace mg/dL Bilirubin UA POC Negative Negative Ketones UA POC Negative Negative Specific [place] UA POC 1.015 Blood UA POC Negative Negative PH UA POC 5.0 Protein UA POC Negative Negative mg/dL Urobilinogen UA POC 0.2 E.U./dL 0.2 E.U./dL, 1.0 E.U./dL, 8 , Unable to interpret due to interfering substances mg/dL Nitrite UA POC Negative Negative Leukocytes UA POC Negative Negative Urine Urine specimen obtained by clean catch procedure / Unknown 04/09/2025 1:45 PM EDT Cynthia Oconnor MD POINT OF CARE TEST ENTER/EDIT O RDERABLES Final Result * XR Foot 3+ Views Right (03/31/2025 1:01 PM EDT) Anatomical Region Laterality Modality Lower Extremities, Foot Right Computed Radiography Narrative 03/31/2025 6:15 PM EDT Right foot 3 views No fracture. No radiopaque foreign joint spaces Arthritis mild moderate midtarsal joint Foot position rectus Normal talus navicular position normal calcaneal inclination normal symes line talus navicular joint to calcaneal cuboid joint Efrain Valle DPM IMG XR PROCEDURES Final R esult * CT Lung Screening (02/13/2025 1:30 PM EDT) Anatomical Region Laterality Modality Chest Computed Tomogra phy 02/18/2025 6:40 PM EDT Impressions 02/18/2025 6:43 PM EDT No suspicious pulmonary nodule. ASSESSMENT: LungRADS Category1: Negative - Continue annual screening with LDCT in 12 months Complete Lung RADS description including probabilities of malignancy and prevalence can be found at: [employer] Committee on Lung-RADS?. Lung- RADS Assessment Categories 2021. Available at [email or web address]. -------- FINAL REPORT -------- Dictated By: Aguila Mendez Dictated Date: 02/18/2025 18:40 ET Assigned Physician: Aguila Mendez Reviewed and Electronically Signed By: Aguila Mendez Signed Date: 02/18/2025 18:43 ET Workstation ID: [id number] Transcribed By: Self Edit Transcribed Date: 02/18/2025 18:40 ET Narrative 02/18/2025 6:43 PM EDT History: 74 year-old 40 pack-year former smoker, asymptomatic, for lung cancer screening. 5 years since stopped Comparison: 12/26/2023 Technique: Helical volumetric imaging of the thorax was performed, using low- dose technique, without IV contrast. DLP: 115.6 mGy/cm CT dose reduction technique utilized with one or more of the following: Automated exposure control and/or adjustment of the mA and/or kV according to patient size and/or use of iterative reconstruction technique. Findings: Lungs: Atelectasis/scarring in the lingula. No consolidation. Pleura: There are no pleural effusions. No calcified or noncalcified pleural plaques. Mediastinum: No adenopathy.. Large thyroid nodule Upper Abdomen: This study was performed without contrast and with lower than standard dose. These factors reduce the sensitivity for detection of small lesions in the upper abdomen. Osseous Structures: No suspicious osseous abnormalities. Procedure Note Aguila Mendez MD - 02/18/2025 History: 74 year-old 40 pack-year former smoker, asymptomatic, for lungcancer screening. 5 years since stopped Comparison: 12/26/2023 Technique: Helical volumetric imaging of the thorax was performed, usinglow-dose technique, without IV contrast. DLP: 115.6 mGy/cm CT dose reduction technique utilized with one or more of the following:Automated exposure control and/or adjustment of the mA and/or kV accordingto patient size and/or use of iterative reconstruction technique. Findings: Lungs: Atelectasis/scarring in the lingula. No consolidation. Pleura: There are no pleural effusions. No calcified or noncalcifiedpleural plaques. Mediastinum: No adenopathy.. Large thyroid nodule Upper Abdomen: This study was performed without contrast and with lowerthan standard dose. These factors reduce the sensitivity for detection ofsmall lesions in the upper abdomen. Osseous Structures: No suspicious osseous abnormalities. IMPRESSION: No suspicious pulmonary nodule. ASSESSMENT: LungRADS Category1: Negative - Continue annual screening with LDCT in 12months Complete Lung RADS description including probabilities of malignancy andprevalence can be found at: [employer] Committee onLung-RADS?. Lung-RADS Assessment Categories 2021. Available [email or web address]. -------- FINAL REPORT -------- Dictated By: Aguila Mendez Dictated Date: 02/18/2025 18:40 ET Assigned Physician: Aguila Mendez Reviewed and Electronically Signed By: Aguila Mendez Signed Date: 02/18/2025 18:43 ET Workstation ID: [id number] Transcribed By: Self Edit Transcribed Date: 02/18/2025 18:40 ET us Kun Everett MD IMG CT PROCEDURES Final Result * Lipid panel with reflex to direct LDL (12/26/2024 9:09 AM EDT) Cholesterol 156 0 - 200 mg/dL LAB CHEMISTRY METHOD 12/26/2024 1:35 PM EDT [facility] Triglycerides 108 0 - 150 mg/dL LAB CHEMISTRY METHOD 12/26/2024 1:35 PM EDT [facility] HDL 61 >=40 mg/dL LAB CHEMISTRY METHOD 12/26/2024 1:35 PM EDT [facility] LDL Calculated 73 0 - 100 mg/dL LAB CHEMISTRY METHOD 12/26/2024 1:35 PM EDT [facility] VLDL Cholesterol Mani 21.6 mg/dL LAB CHEMISTRY METHOD 12/26/2024 1:35 PM EDT [facility] Non HDL Chol. (LDL+VLDL) 95 <145 mg/dL LAB CHEMISTRY METHOD 12/26/2024 1:35 PM EDT [facility] Chol/HDL Ratio 2.6 0.0 - 4.4 LAB CHEMISTRY METHOD 12/26/2024 1:35 PM EDT [facility] Blood Venous blood specimen / Unknown Venipuncture / Unknown 12/26/2024 9:09 AM EDT 12/26/2024 9:09 AM EDT us Anna RODRIGUEZ LAB BLOOD ORDERABLES Final Re sult [facility] [address] [place] [address], [place] [phone] * MG Mammo Digital Screening w Jamarcus bilat (10/28/2024 3:26 PM EDT) Anatomical Region Laterality Modality Breast Bilateral Mammography 10/29/2024 9:02 AM EDT Impressions 10/29/2024 9:06 AM EDT BILATERAL BREASTS: Benign, no evidence of malignancy. Normal interval follow-up is recommended in 12 months. BREAST DENSITY: B - There are scattered areas of fibroglandular density. BI-RADS CATEGORY: 2 - BENIGN RECOMMENDATION: Screening bilateral mammogram is recommended in 1 year. Mammo Location: [facility], [address] [place] [address], [address], . -------- FINAL REPORT -------- Dictated By: Naya Mirza Dictated Date: 10/29/2024 09:02 ET Assigned Physician: Naya Mirza Reviewed and Electronically Signed By: Naya Mirza Signed Date: 10/29/2024 09:06 ET Workstation ID: [id number] Transcribed By: Self Edit Transcribed Date: 10/29/2024 09:02 ET Narrative 10/29/2024 9:06 AM EDT STUDY: Bilateral screening mammography with tomosynthesis and CAD History: Personal history of left breast lumpectomy for breast cancer in 1989 TECHNIQUE: Bilateral full-field digital screening mammography is obtained and read in conjunction with computer-aided detection. Tomosynthesis as well as 2-D C view imaging were obtained. COMPARISON: Comparison made to multiple prior, most recent October 09, 2023, and most remote October 31, 2014. RIGHT BREAST: Tissue marker from previous needle core biopsy. No significant masses, suspicious calcifications or other abnormalities are seen. LEFT BREAST: Postlumpectomy changes. No significant masses, suspicious calcifications or other abnormalities are seen. Procedure Note Naya Mirza MD - 10/29/2024 STUDY: Bilateral screening mammography with tomosynthesis and CAD History: Personal history of left breast lumpectomy for breast cancer [id number] TECHNIQUE: Bilateral full-field digital screening mammography is obtainedand read in conjunction with computer-aided detection. Tomosynthesis aswell as 2-D C view imaging were obtained. COMPARISON: Comparison made to multiple prior, most recent October 09, 2023,and most remote October 31, 2014. RIGHT BREAST: Tissue marker from previous needle core biopsy. Nosignificant masses, suspicious calcifications or other abnormalities areseen. LEFT BREAST: Postlumpectomy changes. No significant masses, suspiciouscalcifications or other abnormalities are seen. IMPRESSION: BILATERAL BREASTS: Benign, no evidence of malignancy. Normal intervalfollow-up is recommended in 12 months. BREAST DENSITY: B - There are scattered areas of fibroglandular density. BI-RADS CATEGORY: 2 - BENIGN RECOMMENDATION: Screening bilateral mammogram is recommended in 1 year. Mammo Location: [facility], [address] [place] [address], [address], . -------- FINAL REPORT -------- Dictated By: Naya Mirza Dictated Date: 10/29/2024 09:02 ET Assigned Physician: Naya Mirza Reviewed and Electronically Signed By: Naya Mirza Signed Date: 10/29/2024 09:06 ET Workstation ID: [id number] Transcribed By: Self Edit Transcribed Date: 10/29/2024 09:02 ET Margarita Galeano MD IMG BI PROCEDURES Final Result * External Stool Based Tests (FOBT/FIT) (06/18/2024 10:47 AM EST) Historical Provider LAB BODY FLUIDS AND STOOL S ORDERABLES Final Result * Hepatitis C Screening (11/12/2013) Hepatitis C Screening abstracted Historical Provider HEALTH MAINTENANCE Final Result from Last 3 Months or Most Recently Relevant to Health Maintenance Insurance [employer] [facility] Care Teams Divisional Merchandising Manager Relationship Specialty Start Date End Date Margarita Galeano MD [address] [place] [address] PCP - General 02/13/11
== END 2025-06-05 13:34 | disposition home or self-care (01) ==
PROVIDERS: PCP Internal Medicine; Visit Provider Physician Assistant
DX: J22 Unspecified acute lower respiratory infection (principal); H65.112 Acute and subacute allergic otitis media (mucoid) (sanguinous) (serous), left ear

== ENCOUNTER → 2025-06-05 13:32 | Outpatient (BNV) | payer MEDICARE, OTHER, SELFPAY | PROVIDERS: PCP Internal Medicine; Visit Provider Radiology Body Imaging | DX: R05.9 Cough, unspecified (principal) | CPT/HCPCS: 71046 ==